=== PATIENT | female | born 1955 | race Caucasian/White ===

== ENCOUNTER 2021-06-24 09:20 | Outpatient (CLI) | payer MEDICARE, MEDICAID ==
[~2021-06-24 09:20] MED LIST: ALBU6.7H9 INH; ALBU8.5H17 IH; FLUT16SP10 NAS; ONDA4TAB6 PO
[2021-06-24 10:19] LABS: BASOPHILS # (AUTO) 0.1 X10'3 (0-0.2); BASOPHILS % (AUTO) 1.2 % (0-1); EOSINOPHILS # (AUTO) 0.2 X10'3 (0-0.9); EOSINOPHILS % (AUTO) 3.9 % (0-6); HEMATOCRIT 47.4 % (35.0-45.0); HEMOGLOBIN 15.9 g/dl (12.0-16.0); LYMPHOCYTES % (AUTO) 33.6 % (21-51); MEAN CORPUSCULAR HGB CONC 33.6 g/dL (33.0-36.5); MEAN CORPUSCULAR VOLUME 95.3 FL (78-98); MEAN PLATELET VOLUME 10.7 FL (7.4-10.4); MONOCYTES # (AUTO) 0.5 X10'3 (0-0.9); MONOCYTES % (AUTO) 9.2 % (2-12); NEUTROPHILS # (AUTO) 3.1 X10'3 (1.8-7.7); NEUTROPHILS % (AUTO) 52.1 % (42-75); PLATELET COUNT 189 X10'3 (140-440); RED BLOOD COUNT 4.98 X10'6 (4.20-5.60); RED CELL DISTRIBUTION WIDTH 13.4 % (11.5-14.5)
[2021-06-24 10:24] LABS: PARTIAL THROMBOPLASTIN TIME 29 SECONDS (22-32)
[2021-06-24 10:31] LABS: ALBUMIN 3.4 G/DL (3.4-5.0); ANION GAP 11 (8-16); BLOOD UREA NITROGEN 11 MG/DL (7-18); BUN/CREATININE RATIO 14.3 (6.6-38.0); CALCIUM 8.5 MG/DL (8.5-10.1); CHLORIDE 106 MMOL/L (99-107); CREATININE 0.77 MG/DL (0.40-0.90); GLUCOSE 101 MG/DL (70-104); POTASSIUM 4.6 MMOL/L (3.5-5.1); SODIUM 142 MMOL/L (135-145); TOTAL CARBON DIOXIDE 24.6 MMOL/L (24-32); eGFR 75 ML/MIN
[2021-06-24 13:06] LABS: LARGE PLATELETS FEW; PLATELET ESTIMATE NORMAL
== END 2021-06-24 23:59 | disposition home or self-care (01) ==
LOC: LAB 09:20 → EDSTATUS 07-02 12:30
PROVIDERS: ATTEND Internal Medicine Interventional Cardiology
DX: E78.5 Hyperlipidemia, unspecified (principal); I47.9 Paroxysmal tachycardia, unspecified; R00.2 Palpitations; I45.19 Other right bundle-branch block; I48.91 Unspecified atrial fibrillation; R94.31 Abnormal electrocardiogram [ECG] [EKG]; I48.0 Paroxysmal atrial fibrillation; F17.210 Nicotine dependence, cigarettes, uncomplicated; F17.220 Nicotine dependence, chewing tobacco, uncomplicated; G47.33 Obstructive sleep apnea (adult) (pediatric); I27.20 Pulmonary hypertension, unspecified; R73.03 Prediabetes; I05.9 Rheumatic mitral valve disease, unspecified; I36.1 Nonrheumatic tricuspid (valve) insufficiency; Z71.6 Tobacco abuse counseling; Z68.36 Body mass index [BMI] 36.0-36.9, adult
CPT/HCPCS: 36415; 80048; 85008; 85025; 85610; 85730

== ENCOUNTER 2022-04-13 13:38 | Emergency (ER) | payer MEDICARE, MEDICAID ==
[~2022-04-13] VITALS: Ht 167.6 cm; Wt 81.8 kg
[2022-04-13] MEDS ORDERED: HYDROcodone/acetaminophen 10/325mg tab PO ONE (13:45)
[2022-04-13] MEDS ORDERED: ondansetron 4mg rapidly disintigrating tab PO ONE (13:45)
[2022-04-13] MEDS ORDERED: LORazepam 1 MG tablet PO ONE (13:45)
--- NOTE | 2022-04-13 14:24 | NUR ---
PROVIDER AT BEDSIDE.
[2022-04-13] MEDS ORDERED: ondansetron/PF 4mg/2ml inj IV ONE ×2 (14:30→15:35)
[2022-04-13] MEDS ORDERED: normal saline 1000ML IV soln IVB ONE (14:30)
[2022-04-13] MEDS ORDERED: etomidate 2mg/ml inj. IV ONE (14:30)
[2022-04-13] MEDS ORDERED: HYDR-3965 PO (15:58)
--- NOTE | 2022-04-13 16:00 | NUR ---
PT'S FAMILY CALLED FOR RIDE HOME.
--- NOTE | 2022-04-13 16:10 | NUR ---
PT PROVIDED WITH WATER, TOLERATED WELL.
[2022-04-13 16:23] VITALS: BP 132/71
== END 2022-04-13 16:36 | disposition home or self-care (01) ==
LOC: ER 13:38
DX: S43.005A Unspecified dislocation of left shoulder joint, initial encounter (principal); S42.252A Displaced fracture of greater tuberosity of left humerus, initial encounter for closed fracture; I48.91 Unspecified atrial fibrillation; I10 Essential (primary) hypertension; Z79.899 Other long term (current) drug therapy; W19.XXXA Unspecified fall, initial encounter; Y93.89 Activity, other specified; Y92.009 Unspecified place in unspecified non-institutional (private) residence as the place of occurrence of the external cause; Y99.8 Other external cause status
CPT/HCPCS: 23650; 73020; 73030; 94799; 96361; 96374; 96375; 99152; 99291; J2405; J3490; J7030; 94760; A4565

== ENCOUNTER 2022-10-14 11:58 | Day surgery (SDC) | payer MEDICARE, MEDICAID ==
[2022-10-06 10:16] LABS: BASOPHILS # (AUTO) 0.1 X10'3 (0-0.2); BASOPHILS % (AUTO) 1.3 % (0-1); EOSINOPHILS # (AUTO) 0.1 X10'3 (0-0.9); EOSINOPHILS % (AUTO) 1.9 % (0-6); HEMATOCRIT 46.4 % (35.0-45.0); HEMOGLOBIN 15.6 g/dl (12.0-16.0); LYMPHOCYTES # (AUTO) 1.6 X10'3 (1.1-4.8); LYMPHOCYTES % (AUTO) 25.1 % (21-51); MEAN CORPUSCULAR HEMOGLOBIN 32.4 PG (27.0-31.0); MEAN CORPUSCULAR HGB CONC 33.5 g/dL (33.0-36.5); MEAN CORPUSCULAR VOLUME 96.5 FL (78-98); MEAN PLATELET VOLUME 10.8 FL (7.4-10.4); MONOCYTES # (AUTO) 0.4 X10'3 (0-0.9); MONOCYTES % (AUTO) 7.1 % (2-12); NEUTROPHILS # (AUTO) 4.1 X10'3 (1.8-7.7); NEUTROPHILS % (AUTO) 64.6 % (42-75); PLATELET COUNT 179 X10'3 (140-440); RED BLOOD COUNT 4.81 X10'6 (4.20-5.60); RED CELL DISTRIBUTION WIDTH 13.4 % (11.5-14.5); WHITE BLOOD COUNT 6.3 X10'3 (4.5-11.0)
[2022-10-06 10:23] LABS: APTT 28 SECONDS (22-32)
[2022-10-06 11:22] LABS: LARGE PLATELETS FEW; PLATELET ESTIMATE NORMAL
[2022-10-06 11:48] LABS: ALBUMIN 3.6 G/DL (3.4-5.0); BLOOD UREA NITROGEN 12 MG/DL (7-18); BUN/CREATININE RATIO 15.2 (6.6-38.0); CALCIUM 8.7 MG/DL (8.5-10.1); CREATININE 0.79 MG/DL (0.40-0.90); GLUCOSE 99 MG/DL (70-104); POTASSIUM 4.2 MMOL/L (3.5-5.1); SODIUM 139 MMOL/L (135-145); TOTAL CARBON DIOXIDE 25.2 MMOL/L (24-32); eGFR 73 ML/MIN
[2022-10-06 13:40] LABS: ANION GAP 8 (8-16); CHLORIDE 106 MMOL/L (99-107)
[2022-10-14] VITALS (13 sets, daily range): BP systolic 89–136; BP diastolic 48–92
[~2022-10-14] VITALS: Ht 165.1 cm; Wt 93.9 kg
[~2022-10-14 11:58] MED LIST changes: +ALBU6.7H14 INH; -ALBU6.7H9 INH
[2022-10-14] MEDS ORDERED: ALBU6.7H14 INH (12:37)
[2022-10-14] MEDS ORDERED: DRON400T6 PO (12:37)
[2022-10-14] MEDS ORDERED: ATOR40TA PO (12:37)
[2022-10-14] MEDS ORDERED: FLUT16SP11 BOTHNARES (12:37)
[2022-10-14] MEDS ORDERED: APIX5TAB3 PO (12:37)
[2022-10-14] MEDS ORDERED: normal saline 1000ml 1,000 ML IV SCH (12:50)
[2022-10-14] MEDS ORDERED: fentaNYL/PF 50MCG/1 ML 2ML syringe IV ONE (12:50)
[2022-10-14] MEDS ORDERED: MIDAZolam 1mg/ml 10ml vial IV ONE (12:50)
== END 2022-10-14 16:00 | disposition home or self-care (01) ==
LOC: SSTAY O 11:58
PROVIDERS: ATTEND Student in an Organized Health Care Education/Training Program
DX: I48.0 Paroxysmal atrial fibrillation (principal); G47.33 Obstructive sleep apnea (adult) (pediatric); I45.10 Unspecified right bundle-branch block; I08.1 Rheumatic disorders of both mitral and tricuspid valves; E78.5 Hyperlipidemia, unspecified; I27.20 Pulmonary hypertension, unspecified; F32.A Depression, unspecified; F17.210 Nicotine dependence, cigarettes, uncomplicated; Z86.12 Personal history of poliomyelitis; Z88.8 Allergy status to other drugs, medicaments and biological substances; Z79.01 Long term (current) use of anticoagulants; Z79.899 Other long term (current) drug therapy; Z85.038 Personal history of other malignant neoplasm of large intestine
CPT/HCPCS: 36415; 80048; 85025; 85610; 85730; 92960; 93005; J2250; J3010; J7030; 85008; A4620

== ENCOUNTER 2023-01-30 17:00 | Emergency (ER) | payer MEDICARE, MEDICAID ==
[~2023-01-30] VITALS: Ht 167.6 cm; Wt 95.0 kg
[~2023-01-30 17:00] MED LIST changes: -ALBU8.5H17 IH; +APIX5TAB3 PO; +ATOR40TA PO; +DRON400T6 PO; -FLUT16SP10 NAS; +FLUT16SP11 BOTHNARES; -ONDA4TAB6 PO
[2023-01-30 17:09] VITALS: BP 116/55
[2023-01-30] MEDS ORDERED: AMOX-117 PO (18:02)
[2023-01-30] MEDS ORDERED: amox tr/potassium clavulanate 875/125mg TAB PO ONE (18:05)
== END 2023-01-30 18:23 | disposition home or self-care (01) ==
LOC: ER 17:00
DX: K11.20 Sialoadenitis, unspecified (principal); I10 Essential (primary) hypertension; I51.9 Heart disease, unspecified; Z79.899 Other long term (current) drug therapy
CPT/HCPCS: 99284

== ENCOUNTER 2023-03-31 00:43 | Emergency (ER) | payer MEDICARE, MEDICAID ==
[~2023-03-31] VITALS: Ht 165.1 cm; Wt 94.1 kg
[2023-03-31 01:01] VITALS: BP 135/83
== END 2023-03-31 03:04 | disposition left against medical advice (07) ==
LOC: ER 00:43
DX: R51.9 Headache, unspecified (principal); Z53.21 Procedure and treatment not carried out due to patient leaving prior to being seen by health care provider
CPT/HCPCS: 99281

== ENCOUNTER 2023-07-20 17:24 | Emergency (ER) | payer MEDICARE, MEDICAID ==
[~2023-07-20] VITALS: Ht 167.6 cm; Wt 90.9 kg
[2023-07-20 17:38] VITALS: TEMP 97.5
[2023-07-20] MEDS ORDERED: morphine 4 MG/ML inj SYRINge IV ONE ×2 (18:05→18:25)
[2023-07-20] MEDS ORDERED: LIDOcaine 1%/PF 5ML 10 MG/ML VIAL IJ ONE (18:20)
--- NOTE | 2023-07-20 18:37 | NUR ---
Morphine 4mg given IM per provider
--- NOTE | 2023-07-20 19:38 | NUR ---
this rn agrees w/ paleobotanist's assessment.
[2023-07-20] MEDS ORDERED: HYDR-3965 PO (19:39)
[2023-07-20 20:13] VITALS: BP 138/98; PULSE 91; RESP 12; O2SAT 97
== END 2023-07-20 22:02 | disposition home or self-care (01) ==
LOC: ER 17:25
DX: S52.592A Other fractures of lower end of left radius, initial encounter for closed fracture (principal); W18.39XA Other fall on same level, initial encounter; Y93.89 Activity, other specified; Y92.89 Other specified places as the place of occurrence of the external cause; Y99.8 Other external cause status
CPT/HCPCS: 25605; 73110; 96374; 99284; J2270; A6446; A6449

== ENCOUNTER 2024-03-01 14:17 | Emergency (ER) | payer MEDICARE, MEDICAID ==
[~2024-03-01] VITALS: Ht 170.2 cm; Wt 85.0 kg
[2024-03-01 17:04] VITALS: BP 126/60; PULSE 89; RESP 16; TEMP 98.8; O2SAT 97
== END 2024-03-01 17:07 | disposition home or self-care (01) ==
LOC: ER 14:18
DX: H57.12 Ocular pain, left eye (principal); I48.91 Unspecified atrial fibrillation; I10 Essential (primary) hypertension; Z60.2 Problems related to living alone; Z79.899 Other long term (current) drug therapy
CPT/HCPCS: 70450; 99284